=== PATIENT | female | born 1960 | race Native Hawaiian/Other Pacific Islander ===

== ENCOUNTER 2019-06-15 13:08 | Outpatient (CLI) | payer BC | END 2019-06-15 21:52 | disposition home or self-care (01) | LOC: MAMMO 13:08 | DX: Z12.31 Encounter for screening mammogram for malignant neoplasm of breast (principal) ==

== ENCOUNTER 2019-06-16 07:18 | Outpatient (CLI) | payer BC ==
[2019-06-16 08:25] LABS: PLATELET COUNT 230 K/uL (152-353)
[2019-06-16 08:31] LABS: POTASSIUM 4.2 mmol/L (3.6-5.2)
== END 2019-06-16 20:06 | disposition home or self-care (01) ==
LOC: LAB 07:18
PROVIDERS: Physician Assistant
DX: E03.9 Hypothyroidism, unspecified (principal); R42 Dizziness and giddiness; R06.02 Shortness of breath
CPT/HCPCS: 36415; 80053; 80061; 82306; 84439; 84443; 85027

== ENCOUNTER 2020-04-05 07:57 | Outpatient (CLI) | payer BC | END 2020-04-05 22:24 | disposition home or self-care (01) | LOC: LABW 07:57 | DX: E03.9 Hypothyroidism, unspecified (principal); Z86.39 Personal history of other endocrine, nutritional and metabolic disease | CPT/HCPCS: 36415; 82306; 84439; 84443 ==

== ENCOUNTER 2020-08-17 16:09 | Outpatient (CLI) | payer BC, OTHER | END 2020-08-17 21:18 | disposition home or self-care (01) | LOC: INF 16:09 | PROVIDERS: ATTEND Internal Medicine | DX: Z23 Encounter for immunization (principal) | CPT/HCPCS: 96372 ==

== ENCOUNTER 2020-09-13 14:13 | Outpatient (CLI) | payer BC, OTHER | END 2020-09-13 21:30 | disposition home or self-care (01) | LOC: INF 14:13 | PROVIDERS: ATTEND Internal Medicine | DX: Z23 Encounter for immunization (principal) | CPT/HCPCS: 96372 ==

== ENCOUNTER 2021-07-06 09:29 | Outpatient (CLI) | payer BC | END 2021-07-06 18:56 | disposition home or self-care (01) | LOC: RESP 09:29 | PROVIDERS: ATTEND Internal Medicine | DX: R00.2 Palpitations (principal) | CPT/HCPCS: 93225 ==

== ENCOUNTER 2021-07-20 09:19 | Outpatient (CLI) | payer BC | END 2021-07-20 21:19 | disposition home or self-care (01) | LOC: US 09:19 | PROVIDERS: ATTEND Internal Medicine | DX: E03.9 Hypothyroidism, unspecified (principal) ==

== ENCOUNTER 2021-11-10 08:16 | Outpatient (CLI) | payer BC | END 2021-11-10 19:24 | disposition home or self-care (01) | LOC: CT 08:16 | PROVIDERS: ATTEND Internal Medicine | DX: J01.00 Acute maxillary sinusitis, unspecified (principal) ==

== ENCOUNTER 2022-04-20 08:40 | Outpatient (CLI) | payer BC | END 2022-04-20 19:00 | disposition home or self-care (01) | LOC: MAMMO 08:40 | PROVIDERS: ATTEND Obstetrics & Gynecology | DX: Z12.31 Encounter for screening mammogram for malignant neoplasm of breast (principal) ==

== ENCOUNTER 2022-09-04 14:36 | Emergency (ER) | payer BC ==
[~2022-09-04] VITALS: Ht 172.7 cm; Wt 77.1 kg
[2022-09-04 14:38] VITALS: TEMP 97.3
[2022-09-04 15:18] LABS: PLATELET COUNT 212 K/uL (152-353)
[2022-09-04 15:26] LABS: POTASSIUM 3.8 mmol/L (3.6-5.2)
[2022-09-04 16:08] LABS: PARTIAL THROMBOPLASTIN TIME 28.3 SECONDS (24.5-33.6)
[2022-09-04 17:00] VITALS: BP 116/78
== END 2022-09-04 17:30 | disposition home or self-care (01) ==
LOC: ED 14:36
PROVIDERS: Emergency Medicine
DX: I47.1 Supraventricular tachycardia (principal)
CPT/HCPCS: 80053; 83735; 83880; 84484; 85027; 85610; 85730; 93005; 96361; 96374; 99284; J0153